=== PATIENT | female | born 2000 | race American Indian/Alaskan Native ===

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

== ENCOUNTER 2019-09-21 13:23 | Emergency (ER) | payer MEDICAID | END 2019-09-22 01:44 | LOC: ED 13:23 | DX: L02.31 Cutaneous abscess of buttock (principal); Z53.21 Procedure and treatment not carried out due to patient leaving prior to being seen by health care provider ==

== ENCOUNTER 2019-09-21 22:58 | Emergency (ER) | payer MEDICAID ==
[2019-09-22 05:47] VITALS: BP 109/73
[2019-09-22] MEDS ORDERED: LIDOCAINE (2%) 20 MG/1 ML VIAL 20 ML MDV INFILTRATI ONE (08:27)
--- NOTE | 2019-09-22 08:27 | Emergency Department Report ---
Abscess Boil HPI - HPI Chief Complaint: Skin/Abscess/Foreign Body Stated Complaint: CYST RT BACKSIDE Time Seen by Provider: 09/22/19 07:47 Duration: 3 Days Location: Other (right lower buttocks) Severity: None History: No Fever, No Pain, No Purulent Drainage, No Numbness, No Foreign Body, No Previous History, No Insect Bite HPI: Visit pleasant 19-year-old female presents the emergency department with 3 days of a painful bump on the right side of her buttocks. Patient reports this is a recurrent issue this has happened many times in the past for she's required an incision and drainage. She denies any changing symptoms, fever, chills, night sweats, headache, dizziness, blurry vision, chest pain, shortness of breath or any other associated symptoms. Patient denies any known past medical history, current medication use and her allergies to medications. Home Medications: Previous Rx's Medication Instructions Recorded Last Taken Type Ibuprofen [Motrin] 600 mg PO Q8H PRN #15 tablet 01/04/17 Unknown Rx Sulfamethoxazole/Trimethoprim 1 each PO BID #20 tablet 01/04/17 Unknown Rx [Bactrim DS TAB] Ibuprofen [Motrin 600 MG tab] 600 mg PO Q8H PRN #30 tablet 06/06/17 Unknown Rx Clindamycin [Clindamycin CAP] 300 mg PO DAILY #7 cap 09/16/18 Unknown Rx Ibuprofen [Motrin 600 MG tab] 600 mg PO Q8H PRN #30 tablet 09/16/18 Unknown Rx Sulfamethoxazole/Trimethoprim 1 each PO BID #14 tablet 09/16/18 Unknown Rx [Bactrim DS TAB] Naproxen 500 mg PO BID #20 tablet 09/22/19 Unknown Rx Sulfamethoxazole/Trimethoprim 1 each PO BID #20 tablet 09/22/19 Unknown Rx [Bactrim DS TAB] Allergies/Adverse Reactions: Allergies Allergy/AdvReac Type Severity Reaction Status Date / Time No Known Allergies Allergy Unverified 01/04/17 09:55 ED Review of Systems ROS: Stated complaint: CYST RT BACKSIDE Other details as noted in HPI Comment: All other systems reviewed and negative Constitutional: denies: chills, fever Eyes: denies: eye pain, eye discharge, vision change ENT: denies: ear pain, throat pain Respiratory: denies: cough, shortness of breath, wheezing Cardiovascular: denies: chest pain, palpitations Endocrine: no symptoms reported Gastrointestinal: denies: abdominal pain, nausea, diarrhea Genitourinary: denies: urgency, dysuria, discharge Musculoskeletal: denies: back pain, joint swelling, arthralgia Skin: as per HPI, lesions. denies: rash Neurological: denies: headache, weakness, paresthesias Psychiatric: denies: anxiety, depression Hematological/Lymphatic: denies: easy bleeding, easy bruising ED Past Medical Hx - Past Medical History Previous Medical History?: No - Surgical History Past Surgical History?: No - Social History Smoking Status: Current Some Day Smoker Substance Use Type: None, Marijuana - Medications Home Medications: Home Medications Medication Instructions Recorded Confirmed Last Taken Type Ibuprofen [Motrin] 600 mg PO Q8H PRN #15 tablet 01/04/17 Unknown Rx Sulfamethoxazole/Trimethoprim 1 each PO BID #20 tablet 01/04/17 Unknown Rx [Bactrim DS TAB] Ibuprofen [Motrin 600 MG tab] 600 mg PO Q8H PRN #30 tablet 06/06/17 Unknown Rx Clindamycin [Clindamycin CAP] 300 mg PO DAILY #7 cap 09/16/18 Unknown Rx Ibuprofen [Motrin 600 MG tab] 600 mg PO Q8H PRN #30 tablet 09/16/18 Unknown Rx Sulfamethoxazole/Trimethoprim 1 each PO BID #14 tablet 09/16/18 Unknown Rx [Bactrim DS TAB] Naproxen 500 mg PO BID #20 tablet 09/22/19 Unknown Rx Sulfamethoxazole/Trimethoprim 1 each PO BID #20 tablet 09/22/19 Unknown Rx [Bactrim DS TAB] ED Abscess Boil Physical Exam - Exam General: Vital signs noted. No distress. Alert and acting appropriately. Size: 2 cm Exam: Yes Tenderness, Yes Fluctuance, Yes Normal Neurologic Exam, Yes Normal Circulation, No Surrounding Cellulites/Erythema, No Lymphangitis, No Crepitation, No Heart Murmur I & D Note - I & D Note I & D Note: Patient was prepped in sterile fashion with Betadine gauze and drapes. I injected 2% lidocaine without epinephrine approximately 2 mL was injected via 27-gauge needle. Once patient was numb I used 11 blade to make a half centimeter incision over the area of most fluctuance and copious amount of purulent drainage was expressed. Patient refused packing. Area was copiously irrigated and cleaned and sterile gauze was placed over the wound. Patient tolerated well with no cough occasions. ED Course Vital Signs 09/22/19 09/22/19 01:08 05:33 Temperature 98.5 F 98.9 F Pulse Rate 80 86 Respiratory 18 18 Rate Blood Pressure 114/72 109/73 O2 Sat by Pulse 96 100 Oximetry Critical care attestation.: If time is entered above; I have spent that time in minutes in the direct care of this critically ill patient, excluding procedure time. ED Medical Decision Making - Medical Decision Making patient presented to [facility] with an abscess to the right lower buttocks. Abscess was drained without competition. Patient will be sent home with Bactrim and naproxen for pain. Recommended warm sitz baths or moist compresses for 5 minutes every hour she verbalized understanding of the diagnosis, treatment plan and follow-up instructions and all questions were answered. - Differential Diagnosis abscess, cellulitis, insect bite ED Disposition Clinical Impression: Abscess Disposition: DC-01 TO HOME OR SELFCARE Is pt being admited?: No Condition: Stable Instructions: Abscess Incision and Drainage (ED) Prescriptions: Sulfamethoxazole/Trimethoprim [Bactrim DS TAB] 1 each PO BID #20 tablet Naproxen 500 mg PO BID #20 tablet Referrals: PRIMARY CARE, [Primary Care Provider] - 3-5 Days Forms: Work/School Release Form(ED) Time of Disposition: 09:09
== END 2019-09-22 09:28 | disposition home or self-care (01) ==
LOC: ED 22:58
DX: L02.31 Cutaneous abscess of buttock (principal); F17.200 Nicotine dependence, unspecified, uncomplicated; F12.10 Cannabis abuse, uncomplicated; Z79.1 Long term (current) use of non-steroidal anti-inflammatories (NSAID); Z79.899 Other long term (current) drug therapy